=== PATIENT | female | born 1965 | race Two or more races ===

== ENCOUNTER 2017-01-07 13:13 | Emergency (ER) | payer MEDICAID ==
[2017-01-07 13:21] VITALS: RESP 18; O2SAT 96
--- NOTE | 2017-01-07 13:39 | EDPHY ---
H & P Stated Complaint: SINUS PAIN AND PRESSURE SINCE TUESDAY LAST WEEK, , Time Seen by Provider: 01/07/17 13:37 HPI/ROS: CHIEF COMPLAINT: Noticed blood on Q-tip point cleaning left ear HISTORY OF PRESENT ILLNESS: The patient presents the ED after she noticed some blood on a Q-tip while cleaning her left ear. She has had some sinus congestion over the past week. She was concerned given the blood that she may have sustained some damage to her ear prompting her visit today. She denies fever. She has a history of frequent sinus irritation. The patient has no history of diabetes or immunosuppression. She denies headache, neck stiffness, numbness or weakness. She has had some mild tenderness in her anterior cervical lymph nodes. REVIEW OF SYSTEMS: A comprehensive 10 point review of systems is otherwise negative aside from elements mentioned in the history of present illness. Source: Patient Exam Limitations: No limitations - Personal History LMP (Females 10-55): IUD In Place Current Tetanus/Diphtheria Vaccine: Yes Current Tetanus Diphtheria and Acellular Pertussis (TDAP): Yes Tetanus Vaccine Date: within 10 yrs - Medical/Surgical History Hx Asthma: No Hx Chronic Respiratory Disease: No Hx Diabetes: No Hx Cardiac Disease: No Hx Renal Disease: No Hx Cirrhosis: No Hx Alcoholism: No Hx HIV/AIDS: No Hx Splenectomy or Spleen Trauma: No Other PMH: depression, anxiety - Social History Smoking Status: Current every day smoker - Physical Exam Exam: General Appearance: Alert, no distress Eyes: Pupils equal and round no pallor or injection ENT, Mouth: Superficial abrasion noted to the left external auditory ear canal , hemostatic. No pharyngeal erythema Respiratory: There are no retractions, lungs are clear to auscultation Cardiovascular: Regular rate and rhythm Gastrointestinal: Abdomen is soft and nontender, no masses, bowel sounds normal Neurological: 5/5 strength noted all 4 extremities, Skin: Warm and dry, no rashes Constitutional: Initial Vital Signs Temperature (C) 36.9 C 01/07/17 13:18 Heart Rate 96 01/07/17 13:18 Respiratory Rate 18 01/07/17 13:18 O2 Sat (%) 96 01/07/17 13:18 O2 Delivery Mode Room Air Allergies/Adverse Reactions: acetaminophen [From Tylenol] Allergy (Verified 11/27/15 22:03) codeine Allergy (Verified 11/27/15 22:03) hydrocodone bitartrate [From Vicodin] Allergy (Verified 11/27/15 22:03) ibuprofen Allergy (Verified 11/27/15 22:03) oxycodone HCl [From Percocet] Allergy (Verified 11/27/15 22:03) Medical Decision Making ED Course/Re-evaluation: The patient presents to the ED with a superficial abrasion to the left external auditory ear canal. The patient has a mild sinusitis. There is no indication for antibiotic treatment given the duration of her symptoms. The patient has been reassured she has no evidence of significant ear canal trauma noted. Departure - Departure Disposition: Home, Routine, Self-Care Clinical Impression: Sinusitis, Ear canal abrasion Condition: Good Instructions: Sinusitis (ED) Additional Instructions: 1. You have a superficial abrasion in your ear canal which should heal without complication and is the source of the bleeding noted on the Q-tip today. 2. You do have a mild sinus infection. Please take Sudafed as needed. There is not an indication to treat this with antibiotics currently. 3. Please schedule a follow-up appointment with your primary care provider for any unimproved symptoms. Referrals: ANA VALADEZ [Primary Care Provider] - As per Instructions Stand Alone Forms: Work Excuse
[2017-01-07 14:01] VITALS: BP 138/88; PULSE 84; TEMP 98.6
== END 2017-01-07 14:07 | disposition home or self-care (01) ==
LOC: CED 13:13
DX: S00.412A Abrasion of left ear, initial encounter (principal); J32.9 Chronic sinusitis, unspecified; F17.200 Nicotine dependence, unspecified, uncomplicated; X58.XXXA Exposure to other specified factors, initial encounter

== ENCOUNTER 2017-01-12 09:52 | Emergency (ER) | payer MEDICAID ==
[2017-01-12 10:07] VITALS: BP 109/88; PULSE 109; RESP 16; TEMP 98.6; O2SAT 93
--- NOTE | 2017-01-12 10:10 | EDPHY ---
H & P Stated Complaint: redness left leg woke with in am . Thinks it is a "spider bite " HPI/ROS: HPI CHIEF COMPLAINT: "bug Bite to leg" HISTORY OF PRESENT ILLNESS: This patient is a very pleasant 51-year-old female she denies any significant medical history she presents emergency room with what she thinks a spider bite to her left leg. It is medially located on the mid tibia region calf region. There is erythema and pain present. There is no fluctuance there is no induration there is no head or visible abscess. It is 3 cm x 4 cm area of redness. Tender palpation with warmth. Central this area there is some clearing with a raised blister. She thinks spider bit her while she was sleeping. She did not see this happen. She woke up with pain and inflammation present. She denies fever. She distally reports that she had spiders bite her right leg in the past where she had abscess. Had to take antibiotics. Here in emergency room she appears well nontoxic no acute distress. Past Medical History: Denies significant medical history Past Surgical History: Denies significant surgical history Social History: Smokes tobacco, she reports she had alcohol last night. Denies other illicit drugs. Family History: Noncontributory ROS REVIEW OF SYSTEMS: A comprehensive 10 point review of systems is otherwise negative aside from elements mentioned in the history of present illness. Exam Constitutional appears well nontoxic triage nursing summary reviewed, vital signs reviewed, awake/alert. Eyes normal conjunctivae and sclera, EOMI, PERRLA. HENT normal inspection, atraumatic, moist mucus membranes, no epistaxis, neck supple/ no meningismus, no raccoon eyes. Respiratory clear to auscultation bilaterally, normal breath sounds, no respiratory distress, no wheezing. Cardiovascular rate normal, regular rhythm, no murmur, no edema, distal pulses normal. Gastrointestinal soft, non-tender, no rebound, no guarding, normal bowel sounds, no distension, no pulsatile mass. Genitourinary no CVA tenderness. Musculoskeletal no midline vertebral tenderness, full range of motion, no calf swelling, no tenderness of extremities, no meningismus, good pulses, neurovascularly intact. Skin left leg: Medial aspect of the middle of the tibia region and calf there is an area of erythema and warmth and pain 3 cm x 4 cm. There is no fluctuance no induration. No palpable cord. Compartments are soft. There is an area of erythema with some central clearing with a blister present. No particular purpura. No evidence of zoster on exam. She does complain that hurts. I do not appreciate any other lesions on exam. Neurologic awake, alert and oriented x 3, AAOx3, moves all 4 extremities equally, motor intact, sensory intact, CN II-XII intact, normal cerebellar, normal vision, normal speech. Psychiatric normal mood/affect. Heme/Lymph/Immune no lymphadenopathy. Differential Diagnosis: Includes but is not limited to in a particular order, cellulitis, MRSA infection, staph infection, strep infection, localized inflammation from insect bite, spider bite, zoster, tick bite. Medical Decision Making: Plan for this patient will placed on doxycycline recommend warm compresses. Additionally recommend keeping close eye on this area. She understands if it becomes worse meaning more erythematous more painful it becomes necrosing or appears to look bad her she should seek medical attention. Warm compresses 3 to 4 times a day. Take doxycycline as prescribed. Additionally follow up with her primary care doctor. Return to the ER if she feels that this is getting worse. She understands this plan and understands return precautions. She understands return if her wound is worse more redness, more swelling, more pain, fever, or the lesion looks like it is getting worse. Source: Patient - Personal History Current Tetanus Diphtheria and Acellular Pertussis (TDAP): Yes Tetanus Vaccine Date: within 10 yrs - Medical/Surgical History Hx Asthma: No Hx Chronic Respiratory Disease: No Hx Diabetes: No Hx Cardiac Disease: No Hx Renal Disease: No Hx Cirrhosis: No Hx Alcoholism: No Hx HIV/AIDS: No Hx Splenectomy or Spleen Trauma: No Other PMH: depression, anxiety - Social History Smoking Status: Current some day smoker Constitutional: Initial Vital Signs Temperature (C) 37 C 01/12/17 09:57 Heart Rate 109 H 01/12/17 09:57 Respiratory Rate 16 01/12/17 09:57 Blood Pressure 109/88 H 01/12/17 09:57 O2 Sat (%) 93 01/12/17 09:57 O2 Delivery Mode Room Air Allergies/Adverse Reactions: codeine Allergy (Verified 01/12/17 10:07) hydrocodone bitartrate [From Vicodin] Allergy (Verified 01/12/17 10:07) ibuprofen Allergy (Verified 11/27/15 22:03) oxycodone HCl [From Percocet] Allergy (Verified 01/12/17 10:07) Home Medications: Medication Instructions Recorded Doxycycline Hyclate [Vibramycin 100 mg PO BID #20 cap 01/12/17 100 MG (*)] Vitamins 01/12/17 Departure - Departure Disposition: Home, Routine, Self-Care Clinical Impression: Cellulitis Qualifiers: Site of cellulitis: extremity Site of cellulitis of extremity: lower extremity Laterality: left Qualified Code(s): L03.116 - Cellulitis of left lower limb Condition: Good Instructions: Cellulitis (ED) Additional Instructions: 1. I recommend you do warm compresses 3 to 4 times a day for 20 minutes. 2. Watch this area closely if he gets worse more redness more swelling more pain or looks worse to please have it re-evaluated by either the emergency room her primary care doctor. 3. I recommend you take the antibiotic doxycycline with food not on an empty stomach. 4. Return emergency room if you have any further questions or concerns or worsening of symptoms. Referrals: ANA VALADEZ [Primary Care Provider] - As per Instructions Prescriptions: Doxycycline Hyclate [Vibramycin 100 MG (*)] 100 mg PO BID #20 cap
== END 2017-01-12 10:40 | disposition home or self-care (01) ==
LOC: CED 09:52
DX: L03.116 Cellulitis of left lower limb (principal); F17.200 Nicotine dependence, unspecified, uncomplicated

== ENCOUNTER 2017-04-19 03:10 | Emergency (ER) | payer MEDICAID ==
--- NOTE | 2017-04-19 03:25 | EDPHY ---
H & P Time Seen by Provider: 04/19/17 03:17 HPI/ROS: CHIEF COMPLAINT: Pain to the right shoulder, landed on HISTORY OF PRESENT ILLNESS: 51-year-old female states that she was horsing around in bed.. She went to twist and she and her landed on the floor: she striking her right shoulder on the floor with him landing on top of her. She had immediate pain at the time. However, there was no snapping or crunching , nor click associated with this nor subsequently. This all happened about an 30 min ago. She took 800 mg ibuprofen. It has yet to really take effect. The pain is laterally overlying the shoulder and just above the AC joint. It is bad enough that she has difficulty in abduct in the arm due to the pain. There is no radiation down the arm. No injuries to the neck or head, nor chest. There is no numbness or tingling paresthesias. She has no prior cervical spine or shoulder injuries. 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 Integument - no rashes or wounds Neurological - no numbness, tingling, or paresthesias. Smoking Status: Current some day smoker Physical Exam: General Appearance: Alert, no distress. Afebrile. Extremities: To the right shoulder there is no soft tissue swelling. There is tenderness at the distal aspect of the trapezius overlying the scapula as well as the AC joint and lateral aspect of the shoulder proper. As I have her attempt to do an AB duction she is unable to bring the arm away from the thorax ; holding it abducted. There is no deformity. The clavicle itself is nontender , however she is tender over the lateral aspect shoulder just below the AC as well as the AC proper. Neurological: NV intact. Normal sensation. I and unable to conduct motor skills of the right shoulder due to her inability to move it secondary to the pain Skin: Skin is intact. Warm and dry, no rashes. no lymphangitis. . Constitutional: Initial Vital Signs Temperature (C) 36.5 C 04/19/17 03:30 Heart Rate 98 04/19/17 03:30 Respiratory Rate 16 04/19/17 03:30 Blood Pressure 134/94 H 04/19/17 03:30 O2 Sat (%) 96 04/19/17 03:30 O2 Delivery Mode Room Air Allergies/Adverse Reactions: codeine Allergy (Verified 04/19/17 03:27) hydrocodone bitartrate [From Vicodin] Allergy (Verified 04/19/17 03:27) oxycodone HCl [From Percocet] Allergy (Verified 04/19/17 03:27) Home Medications: Medication Instructions Recorded NK [No Known Home Meds] 04/19/17 Medical Decision Making - Diagnostics Imaging Results: My Plain Film Review: Plain film of right shoulder 3 view series. Films interpreted by me contemporaneously. Negative for fracture. No signs of separation of the AC joint. The space of the cortical clavicular rhythm it is preserved. No bony abnormality. Lungs are inflated, no pneumothorax. Imaging: I viewed and interpreted images myself ED Course/Re-evaluation: The [employer] drug monitoring program was queried and she was not in there for past 12 months. She was given Tylenol to augment the ibuprofen as she is allergic to both hydrocodone and oxycodone Differential Diagnosis: The differential diagnosis includes but is not limited to: Fracture, Sprain, Strain, Dislocation, Nerve injury, Contusion, rotator cuff tear or strain - Data Points Medications Given: Discontinued Medications Acetaminophen (Tylenol) 1,000 mg PO EDNOW ONE Stop: 04/19/17 04:00 Last Admin: 04/19/17 04:03 Dose: 1,000 mg Departure - Departure Disposition: Home, Routine, Self-Care Clinical Impression: Rotator cuff (capsule) sprain Qualifiers: Encounter type: initial encounter Laterality: right Qualified Code(s): S43.421A - Sprain of right rotator cuff capsule, initial encounter Condition: Good Instructions: Rotator Cuff Injury (ED) Additional Instructions: Ice is best. If you do use heat, apply ice thereafter. Sling to help support the shoulder and take the weight of the arm off the shoulder. You may remove this for showering, only. For your pain: Tylenol and Advil works well together in combination: 1300 mg Extended Release Tylenol and 600 mg Advil every 8 hours. Consider physical therapy in 5-7 days if not markedly improved. See her family physician or orthopedist of choice, 5-7 days. Referrals: Patient,NotPresent [Unknown] - As per Instructions Greg Lockhart MD [Medical Doctor] - As per Instructions Stand Alone Forms: Work Limited Duty, Work Excuse
[2017-04-19 03:36] VITALS: BP 134/94; PULSE 98; RESP 16; TEMP 97.7; O2SAT 96
[2017-04-19] MEDS ORDERED: ACETAMINOPHEN 500 MG TAB ONE (03:57)
[2017-04-19] MEDS ORDERED: ACETAMINOPHEN 500 MG TAB PO ONE (03:59)
== END 2017-04-19 04:10 | disposition home or self-care (01) ==
LOC: CED 03:10
DX: S43.421A Sprain of right rotator cuff capsule, initial encounter (principal); F17.200 Nicotine dependence, unspecified, uncomplicated; W22.8XXA Striking against or struck by other objects, initial encounter
CPT/HCPCS: 73030-PO